=== PATIENT | male | born 1970 | race Two or more races ===

== ENCOUNTER 2023-05-18 16:32 | Emergency (ER) | payer SELFPAY ==
[~2023-05-18] VITALS: Ht 165.1 cm; Wt 83.6 kg
[2023-05-18 17:25] VITALS: BP 117/69; PULSE 97; RESP 16; TEMP 98; O2SAT 98
[2023-05-18] MEDS ORDERED: cefTRIAXone SOD 1,000 MG VL IM ONE (17:45)
[2023-05-18] MEDS ORDERED: BACDST PO (18:16)
[2023-05-18] MEDS ORDERED: CLIN300C70 PO (18:16)
== END 2023-05-18 18:28 | disposition home or self-care (01) ==
LOC: ER 16:32
DX: S70.362A Insect bite (nonvenomous), left thigh, initial encounter (principal); L08.89 Other specified local infections of the skin and subcutaneous tissue; W57.XXXA Bitten or stung by nonvenomous insect and other nonvenomous arthropods, initial encounter; Y93.89 Activity, other specified; Y92.89 Other specified places as the place of occurrence of the external cause; Y99.8 Other external cause status
CPT/HCPCS: 96372; 99283; J0696

== ENCOUNTER 2023-07-04 14:44 | Emergency (ER) | payer MEDICAID ==
[~2023-07-04] VITALS: Ht 165.1 cm; Wt 79.8 kg
[~2023-07-04 14:44] MED LIST: BACDST PO; CLIN300C70 PO
[2023-07-04] MEDS ORDERED: BACDST PO (15:47)
[2023-07-04] MEDS ORDERED: IBU600T PO (15:47)
[2023-07-04] MEDS ORDERED: CLIN300C70 PO (15:47)
[2023-07-04 15:57] VITALS: BP 110/76; PULSE 90; RESP 18; O2SAT 98
== END 2023-07-04 16:00 | disposition home or self-care (01) ==
LOC: ER 14:44
DX: T63.301A Toxic effect of unspecified spider venom, accidental (unintentional), initial encounter (principal); L08.9 Local infection of the skin and subcutaneous tissue, unspecified; R22.32 Localized swelling, mass and lump, left upper limb; Y92.9 Unspecified place or not applicable

== ENCOUNTER 2024-12-24 12:32 | Emergency (ER) | payer MEDICAID ==
[~2024-12-24] VITALS: Ht 165.1 cm; Wt 75.2 kg
[~2024-12-24 12:32] MED LIST changes: +CLIN1CAP70 PO; -CLIN300C70 PO; +IBU600T PO
[2024-12-24 12:34] VITALS: BP 138/83; PULSE 93; RESP 16; TEMP 98.2; O2SAT 98
--- NOTE | 2024-12-24 13:21 | ED.PDOC ---
Musculoskeletal HPI Comments 54-year-old male presents to the ER with a the chief complaint of a wound check. Patient reports on needing the wound check to be on the right foot 4th toe. Patient states on green and yellow discharge excreting from the 4th phalanges, with mild lower extremity swelling. No pedal edema. Patient notes on having pain in that area. Denies any other symptoms at the moment. Chief Complaint: Wound Check Time Seen by MD: 13:15 Primary Care Provider: NONE Reviewed Notes: Nurses Notes, Medications, Allergies Allergies: Coded Allergies: NO KNOWN ALLERGIES (Unverified , 05/18/23) Home Meds Active Scripts Ibuprofen Micronized (MOTRIN TABLET) 600 Mg Tb, 600 MG PO TID PRN, #40 TAB *Black box warning-NSAIDS can increase risk of ME & hypertension, GI irritation, ulceration, bleed, perferation. Do not use post cardiac surgery. Use short duration/lowest effective dose. Prov:NARAYAN HEATON MD 07/04/23 Sulfamethoxazole W/Trimethopri (Bactrim Ds Tablet) 1 Tab Tb, 20 TAB PO BID for 10 Days, #20 TAB Prov:NARAYAN HEATON MD 07/04/23 Clindamycin Hcl (Clindamycin Hcl) 300 Mg Cap, 300 MG PO QID PRN for 10 Days, #40 CAP Prov:NARAYAN HEATON MD 07/04/23 Sulfamethoxazole W/Trimethopri (Bactrim Ds Tablet) 1 Tab Tb, 1 TAB PO BID for 10 Days, #20 TAB Prov:ROWAN PONCE 05/18/23 Clindamycin Hcl (Clindamycin Hcl) 300 Mg Cap, 300 MG PO QID, #40 CAP Prov:ROWAN PONCE 05/18/23 Information Source: Patient Mode of Arrival: Ambulatory Location: Right Extremity Location: Toe 4 Timing: Came on: Suddenly Prehospital treatment: None Severity: Moderate Able to Move Extremity: No Bear Weight: Limited Pain: Moderate Hand Dominance: Right Mechanism: None Circumstances: Preceding Wound Onset of Symptoms: Spontaneous Symptoms: Pain DVT Risk Factors: NONE Last Tetanus: Unknown Associated signs and symptoms: Foot pain Past Medical History PAST MEDICAL HISTORY: Denies Surgical History: Denies all surgeries Family History Family History: Reviewed,noncontributory to illness Social History Smoker: Non-Smoker Alcohol: Denies ETOH Use Drugs: Denies Drug Use Lives In: Home Constitutional: denies: chills, diaphoresis, fatigue, fever, malaise, sweats, weakness, others EENTM: denies: blurred vision, double vision, ear bleeding, ear discharge, ear drainage, ear pain, ear ringing, eye pain, eye redness, hearing loss, mouth pain, mouth swelling, nasal discharge, nose bleeding, nose congestion, nose pain, photophobia, tearing, throat pain, throat swelling, voice changes, others Respiratory: denies: cough, hemoptysis, orthopnea, SOB at rest, shortness of breath, SOB with excertion, stridor, wheezing, others Cardiovascular: denies: chest pain, dizzy spells, diaphoresis, Dyspnea on exertion, edema, irregular heart beat, left arm pain, lightheadedness, palpitations, PND, syncope, others Gastrointestinal: denies: abdomen distended, abdominal pain, blood streaked bowels, constipated, diarrhea, dysphagia, difficulty swallowing, hematemesis, melena, nausea, poor appetite, poor fluid intake, rectal bleeding, rectal pain, vomiting, others Genitourinary: denies: burning, dysuria, flank pain, frequency, hematuria, incontinence, penile discharge, penile sore, pain, testicle pain, testicle swelling, urgency, others Neurological: denies: dizziness, fainting, headache, left sided numbness, left sided weakness, numbness, paresthesia, pre-existing deficit, right sided numbness, right sided weakness, seizure, speech problems, tingling, tremors, weakness, others Musculoskeletal: denies: back pain, gout, joint pain, joint swelling, muscle pain, muscle stiffness, neck pain, others Integumetry: denies: bruises, change in color, change in hair/nails, dryness, laceration, lesions, lumps, rash, wounds, others Allergic/Immunocompromised: denies: Difficulty Healing, Frequent Infections, Hives, Itching, others Hematologic/Lymphatic: denies: anemia, blood clots, easy bleeding, easy bruising, swollen glands, others Endocrine: denies: excessive hunger, excessive sweating, excessive thirst, excessive urination, flushing, intolerance to cold, intolerance to heat, unexplained weight gain, unexplained weight loss, others Psychiatric: denies: anxiety, bipolar disorder, depression, hopeless, panic disorder, schizophrenia, sleepless, suicidal, others All Other Systems: Reviewed and Negative Physical Exam Exam Comments Mild lower extremity swelling, no pedal edema, DVT +, neurovascular sensation intact General Appearance: No Apparent Distress, Normal HEENT: Normal ENT Inspection, Pharynx Normal, TMs Normal Neck: Full Range of Motion, Non-Tender, Normal, Normal Inspection Respiratory: Chest Non-Tender, Lungs Clear, No Accessory Muscle Use, No Respiratory Distress, Normal Breath Sounds Cardiovascular: No Edema, No JVD, No Murmur, No Gallop, Normal Peripheral Pulses, Regular Rate/Rhythm Breast Exam: Deferred Gastrointestinal: No Organomegaly, Non Tender, No Pulsatile Mass, Normal Bowel Sounds, Soft Genitalia: Deferred Pelvic: Deferred Rectal: Deferred Extremities: No calf tenderness, Normal capillary refill, Normal inspection, Normal range of motion, Non-tender, No pedal edema Musculoskeletal : Apperance: Normal Neurologic: Alert, 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 Was a procedure done?: No X-Ray, Labs, Meds, VS Vital Signs Date Time Temp Pulse Resp B/P (MAP) Pulse Ox O2 Delivery O2 Flow Rate FiO2 12/24/24 12:34 98.2 93 16 138/83 98 98.2 Current Medications Medications (Trade) Dose Ordered Sig/Giancarlo Route Start Time Stop Time Status Last Admin Ketorolac Tromethamine (Toradol Injection) 30 mg ONCE ONCE IM 12/24/24 13:45 12/24/24 13:46 DC 12/24/24 13:59 Ceftriaxone Sodium (Rocephin) 1,000 mg ONCE ONCE IM 12/24/24 13:45 12/24/24 13:46 DC 12/24/24 13:58 X-Ray, Labs, Meds, VS Comment 54-year-old male presents to the ER with a the chief complaint of a wound check. Patient arrives alert and oriented, ABC's intact, afebrile, vital signs stable, saturating well in room air Diagnostic imaging ordered by me and results interpreted by radiology : X-ray Labs in the ED showed (pertinent+ and then pertinent-) Patient was given:_. Tolerated medications with no adverse reaction. Additional MDM Review of External, Non-ED records: External records reviewed. Discussion with independent historian (EMS, family) history obtained from the patient/parents (if applicable) at bedside Chronic conditions affecting care: None Social determinants of health affecting care: None Consideration of admission (observation or admission): I considered escalation of care to admission for this patient, however given the reassuring workup, the patient is safe for outpatient management. Discussion with the Radiology: No Tests considered but not performed: Prescription medication considered but not given: 12 lead EKG interpretation: Time of 1ST Reevaluation: 13:45 Reevaluation 2ND: Unchanged Patient Education/Counseling: Diagnosis, Treatment, Prognosis Family Education/Counseling: No Family Present Departure 1 Departure Time of Disposition: 14:28 Impression: Primary Impression: Toe pain, right Disposition: 01 HOME / SELF CARE / HOMELESS Condition: Stable Additional Instructions: Discharge Note: Continue on your medications. Do not drive when taking narcotics. Drink plenty of fluids. Follow up with your primary Dr. Take your prescriptions as ordered. If your condition becomes worse call and follow up with your primary Dr. for instructions or return to the ER if needed. Have the stitches/oliver removed in 7-10 days. Keep wound clean and dry. Thank you for visiting [facility]. e-Prescriptions Sulfamethoxazole W/Trimethopri (Bactrim Ds Tablet) 1 Tab Tb 1 TAB PO BID for 7 Days, #14 TAB 0 Refills Prov: GARRICK SALOMON NP 12/24/24 Critical Care Note Critical Care Time?: No Stability Stability form required: No I personally scribed for GARRICK SALOMON NP ([email or web address]) on 12/24/24 at 13:21. Electronically submitted by Andres Mcfarlane ([email or web address]). I personally scribed for GARRICK SALOMON NP ([email or web address]) on 12/24/24 at 13:40. Electronically submitted by Andres Mcfarlane ([email or web address]). GARRICK SALOMON NP Dec 24, 2024 13:21
[2024-12-24] MEDS: cefTRIAXone SOD 1,000 MG VL IM ONE (13:58)
[2024-12-24] MEDS: KETOROLAC TROMETH 30 MG/ML 1ML VIAL IM ONE (13:59)
--- NOTE | 2024-12-24 14:04 | DVH ---
EXAM: XY R FOOT 3 VIEW XRAY CLINICAL INDICATION: R/o injury to 4th phalanx TECHNIQUE: XY R FOOT 3 VIEW XRAY Comparison: None FINDINGS/IMPRESSION: There is no evidence of acute fracture or dislocation. The visualized joint space is well maintained. The alignment is anatomical. There is no radiopaque foreign body.
[2024-12-24] MEDS ORDERED: BACDST PO (14:29)
== END 2024-12-24 14:33 | disposition home or self-care (01) ==
LOC: ER 12:32
DX: M79.674 Pain in right toe(s) (principal); Z79.899 Other long term (current) drug therapy
CPT/HCPCS: 73630; 96372; 99284; J0696; J1885